=== PATIENT | female | born 1990 | race Caucasian/White ===

== ENCOUNTER 2020-11-22 23:38 | Emergency (ER) | payer OTHER, SELFPAY ==
[2020-11-22] MEDS ORDERED: methylPREDNISolone Sod Succ/PF 125 MG/2 ML VIAL ONE (23:53)
== END 2020-11-23 00:05 | disposition home or self-care (01) ==
LOC: MADERS 23:38
DX: M54.41 Lumbago with sciatica, right side (principal)
CPT/HCPCS: 96372; 99283; J2930

== ENCOUNTER 2020-12-04 19:34 | Emergency (ER) | payer OTHER, SELFPAY ==
[2020-12-04] MEDS ORDERED: HYDROcodone/Acetaminophen 5/325 mg Tablet ONE (20:13)
[2020-12-04] MEDS ORDERED: Gabapentin 100 MG CAP ONE (20:14)
[2020-12-04] MEDS ORDERED: Ketorolac Tromethamine 60 MG/2 ML VIAL ONE (20:14)
[2020-12-04] MEDS ORDERED: Cyclobenzaprine 10 MG TAB ONE (20:14)
== END 2020-12-04 20:43 | disposition home or self-care (01) ==
LOC: MADERS 19:34
DX: M54.41 Lumbago with sciatica, right side (principal); F17.210 Nicotine dependence, cigarettes, uncomplicated
CPT/HCPCS: 96372; 99283; J1885

== ENCOUNTER 2021-01-26 21:14 | Emergency (ER) | payer SELFPAY ==
[2021-01-26] MEDS ORDERED: Ketorolac Tromethamine 60 MG/2 ML VIAL ONE (22:51)
[2021-01-26] MEDS ORDERED: HYDROcodone/Acetaminophen 5/325 mg Tablet ONE (22:51)
[2021-01-26] MEDS ORDERED: Cyclobenzaprine 10 MG TAB ONE (22:51)
[2021-01-26] MEDS ORDERED: Gabapentin 100 MG CAP ONE (22:51)
== END 2021-01-26 23:12 | disposition home or self-care (01) ==
LOC: MADERS 21:14
DX: M54.41 Lumbago with sciatica, right side (principal); F17.200 Nicotine dependence, unspecified, uncomplicated
CPT/HCPCS: 96372; 99283; J1885

== ENCOUNTER 2021-02-09 23:47 | Emergency (ER) | payer SELFPAY ==
[2021-02-10] MEDS ORDERED: HYDROcodone/Acetaminophen 5/325 mg Tablet ONE (00:49)
[2021-02-10] MEDS ORDERED: predniSONE 20 MG TAB ONE (00:49)
== END 2021-02-10 00:59 | disposition home or self-care (01) ==
LOC: MADERS 23:47
DX: M54.31 Sciatica, right side (principal); F17.200 Nicotine dependence, unspecified, uncomplicated
CPT/HCPCS: 99283; J7512

== ENCOUNTER 2021-12-23 07:28 | Emergency (ER) | payer MEDICAID ==
[2021-12-23] MEDS ORDERED: Fluorescein Opthalmic Strip ONE (08:10)
[2021-12-23] MEDS ORDERED: Tetracaine 0.5% PF 4 ML BOT ONE (08:10)
== END 2021-12-23 08:43 | disposition home or self-care (01) ==
LOC: MADERS 07:28
DX: H18.20 Unspecified corneal edema (principal); H20.00 Unspecified acute and subacute iridocyclitis; F17.200 Nicotine dependence, unspecified, uncomplicated
CPT/HCPCS: 99283

== ENCOUNTER 2021-12-25 19:04 | Emergency (ER) | payer MEDICAID, SELFPAY ==
[2021-12-25] MEDS ORDERED: Fluorescein Opthalmic Strip ONE (19:18)
[2021-12-25] MEDS ORDERED: Tetracaine 0.5% PF 4 ML BOT ONE (19:18)
[2021-12-25] MEDS ORDERED: Tobramycin Sulfate 0.3% Ophth Susp 5 ml Bottle ONE (19:51)
[2021-12-25] MEDS ORDERED: predniSONE 20 MG TAB ONE (20:05)
== END 2021-12-25 20:09 | disposition home or self-care (01) ==
LOC: MADERS 19:04
DX: H10.9 Unspecified conjunctivitis (principal); F17.200 Nicotine dependence, unspecified, uncomplicated; Z79.899 Other long term (current) drug therapy
CPT/HCPCS: 99283; J7512

== ENCOUNTER 2022-01-26 08:10 | Emergency (ER) | payer SELFPAY ==
[2022-01-26] MEDS ORDERED: Lactated Ringer's 1,000 ML ONE (08:45)
[2022-01-26] MEDS ORDERED: Ondansetron PF 4 MG/2 ML Vial ONE (08:45)
[2022-01-26] MEDS ORDERED: Ketorolac Tromethamine 30 MG/ML VIAL ONE (08:45)
[2022-01-26 10:01] LABS: BHCG - Serum Negative (NEGATIVE); Pregs Control Background? CLEAR/WHITE (CLR/WHITE); Pregs Control Bar Appear? YES (CONTROL BAR)
[2022-01-26 10:02] LABS: #Basophils 0.1 thou/uL (0.0-0.2); #Eosinphils 0.1 thou/uL (0.0-0.7); #Lymphocytes 1.2 thou/uL (1.20-3.40); #Monocytes 0.8 thou/uL (0.11-0.59); %Basophils 0.9 % (0.0-1.0); %Lymphocytes 12.8 % (21.0-51.0); %Monocytes 8.8 % (0.0-10.0); %Neutrophils 76.6 % (42.0-75.0); Mean Corpuscular Volume 76.6 fL (78.0-98.0); Mean Platelet Volume 7.4 fL (7.4-10.4); Platelet Count 331 thou/uL (130-400); RBC Distribution Width 14.4 % (11.5-14.5); Red Blood Cell (RBC) Count 3.93 mill/uL (4.20-5.40); White Blood Cell (WBC) Count 9.1 thou/uL (4.8-10.8)
[2022-01-26 10:04] LABS: Anisocytosis SLIGHT = 6-15 cells (100X) (0-5/hpf); Platelet Morphology Comment Appears Adequate
[2022-01-26 10:06] LABS: ALT (SGPT) 9 U/L (8-55); AST (SGOT) 14 U/L (5-34); Albumin 3.7 g/dL (3.5-5.0); Alkaline Phosphatase 78 U/L (40-110); Anion Gap 13 mmol/L (10-20); BUN (Urea Nitrogen) 8 mg/dL (7.0-18.7); Bilirubin, Total 0.5 mg/dL (0.2-1.2); Calc. Creatinine Clearance 0 mL/min (70-130); Calcium 8.9 mg/dL (7.8-10.44); Carbon Dioxide 22 mmol/L (22-29); Chloride 106 mmol/L (98-107); Estimated GFR 113; Globulin 2.4 g/dL (2.4-3.5); Glucose 94 mg/dL (70-105); Lipase 19 U/L (8-78); Potassium 3.9 mmol/L (3.5-5.1); Protein, Total 6.1 g/dL (6.0-8.3); Sodium 137 mmol/L (136-145)
[2022-01-26 10:33] LABS: Bilirubin Negative (Negative); Blood, Urine Large (Negative); Clarity Clear (Clear); Glucose, Urine (Dipstick) Negative (Negative); Ketone, Urine Negative (Negative); Leukocyte Negative (Negative); Nitrite Negative (Negative); Protein, Urine (Dipstick) Negative (Neg-Trace); Specific Gravity, Urine 1.025 (1.005-1.030); Urobilinogen 0.2 mg/dL (Less than 2)
[2022-01-26 10:40] LABS: RBC/HPF Greater than 50 HPF (0-3); WBC/HPF 0-3 HPF (0-3)
[2022-01-26 10:41] LABS: Bacteria/HPF Rare-Few HPF (None Seen)
== END 2022-01-26 10:48 | disposition home or self-care (01) ==
LOC: MADERS 08:10
DX: N20.2 Calculus of kidney with calculus of ureter (principal); D50.9 Iron deficiency anemia, unspecified
CPT/HCPCS: 36415; 80053; 81003; 81015; 83690; 84703; 85025; 87086; 94760; 96361; 96374; 96375; J1885; J2405; J7120

== ENCOUNTER 2022-01-26 22:05 | Emergency (ER) | payer SELFPAY ==
[2022-01-26] MEDS ORDERED: Ketorolac Tromethamine 30 MG/ML VIAL ONE (22:52)
[2022-01-26 23:55] LABS: Bilirubin Negative (Negative); Blood, Urine Trace (Negative); Clarity Clear (Clear); Glucose, Urine (Dipstick) Negative (Negative); Ketone, Urine 15 mg/dL (Negative); Leukocyte Negative (Negative); Nitrite Negative (Negative); Protein, Urine (Dipstick) Negative (Neg-Trace); Urobilinogen 0.2 mg/dL (Less than 2); pH, Urine 5.5 (5.0-9.0)
[2022-01-27 00:04] LABS: Specific Gravity, Urine 1.024 (1.002-1.036)
[2022-01-27 00:05] LABS: Pregnancy Test - Urine (BHCG) Negative (Negative); Pregu Control Background? CLEAR/WHITE (CLR/WHITE); Pregu Control Bar Appear? YES (CONTROL BAR); Specific Gravity 1.024 (1.002-1.036)
[2022-01-27] MEDS ORDERED: Lactated Ringer's 1,000 ML ONE (00:05)
[2022-01-27] MEDS ORDERED: Morphine 4 MG/ML VIAL ONE (00:05)
== END 2022-01-27 01:09 | disposition home or self-care (01) ==
LOC: MADERS 22:05
DX: N20.2 Calculus of kidney with calculus of ureter (principal); E86.0 Dehydration; F17.200 Nicotine dependence, unspecified, uncomplicated
CPT/HCPCS: 81025; 96361; 96374; 96375; J1885; J2270; J7120

== ENCOUNTER 2022-06-24 23:57 | Emergency (ER) | payer BC ==
[2022-06-25] MEDS ORDERED: Ketorolac Tromethamine 60 MG/2 ML VIAL ONE (00:26)
== END 2022-06-25 00:36 | disposition home or self-care (01) ==
LOC: MADERS 23:57
DX: K04.7 Periapical abscess without sinus (principal); F17.200 Nicotine dependence, unspecified, uncomplicated
CPT/HCPCS: 96372; 99282; J1885

== ENCOUNTER 2022-08-19 17:00 | Emergency (ER) | payer BC ==
[2022-08-19] MEDS ORDERED: Lactated Ringer's 2,000 ML ONE (17:40)
[2022-08-19 18:17] LABS: INR-International Normal Ratio 1.1; Prothrombin Time 14.8 sec (12.0-14.7)
[2022-08-19 18:19] LABS: PTT 29.3 sec (22.9-36.1)
[2022-08-19 18:25] LABS: ALT (SGPT) 23 U/L (8-55); AST (SGOT) 21 U/L (5-34); Albumin 4.3 g/dL (3.5-5.0); Alkaline Phosphatase 84 U/L (40-110); Anion Gap 15 mmol/L (10-20); BUN (Urea Nitrogen) 11 mg/dL (7.0-18.7); Bilirubin, Total 0.9 mg/dL (0.2-1.2); CK (CPK) 91 U/L (29-168); Calc. Creatinine Clearance 0 mL/min (70-130); Calcium 9.2 mg/dL (7.8-10.44); Carbon Dioxide 21 mmol/L (22-29); Chloride 105 mmol/L (98-107); Estimated GFR 99; Globulin 2.7 g/dL (2.4-3.5); Glucose 107 mg/dL (70-105); Lipase 15 U/L (8-78); Magnesium 1.8 mg/dL (1.6-2.6); Potassium 3.4 mmol/L (3.5-5.1); Sodium 138 mmol/L (136-145)
[2022-08-19 18:26] LABS: Band 17 % (5-11); Hemoglobin 14.2 g/dL (12.0-16.0); Lymphocytes 5 % (21-51); MDiff Complete? YES; Mean Corpuscular HGB CONC 32.5 g/dL (32.0-36.0); Mean Corpuscular Hemoglobin 29.8 pg (27.0-31.0); Mean Corpuscular Volume 91.8 fl (78.0-98.0); Mean Platelet Volume 8.3 fL (7.4-10.4); Monocytes 9 % (0-10); Neutrophil 69 % (42-75); Platelet Count 292 10x3/uL (130-400); Platelet Morphology Comment Appears Adequate; RBC Distribution Width 13.9 % (11.5-14.5); Red Blood Cell (RBC) Count 4.78 mill/uL (4.20-5.40); White Blood Cell (WBC) Count 15.9 10x3/uL (4.8-10.8)
[2022-08-19 20:17] LABS: Bilirubin Small (Negative); Blood, Urine Large (Negative); Clarity Slightly Cloudy (Clear); Glucose, Urine (Dipstick) Negative (Negative); Ketone, Urine 80 mg/dL (Negative); Leukocyte Trace (Negative); Nitrite Negative (Negative); Protein, Urine (Dipstick) 30 mg/dL (Neg-Trace); Specific Gravity, Urine 1.025 (1.005-1.030)
[2022-08-19] MEDS ORDERED: Lactated Ringer's 1,000 ML ONE (20:20)
[2022-08-19 20:27] LABS: RBC/HPF 21-50 HPF (0-3); Squamous Epithelial Greater than 50 HPF (0-3)
[2022-08-19 20:28] LABS: Bacteria/HPF 1+ HPF (None Seen); Mucous/LPF 1+ LPF (<2+)
[2022-08-19] MEDS ORDERED: Sodium Chloride 0.9% 100 ML ONE (21:22)
[2022-08-19] MEDS ORDERED: cefTRIAXone (ROCEPHIN) 2 GM VIAL ONE (21:22)
== END 2022-08-19 22:01 | disposition home or self-care (01) ==
LOC: MADERS 17:00
DX: R82.71 Bacteriuria (principal); R65.10 Systemic inflammatory response syndrome (SIRS) of non-infectious origin without acute organ dysfunction; E86.0 Dehydration; E87.6 Hypokalemia; R94.6 Abnormal results of thyroid function studies; D72.829 Elevated white blood cell count, unspecified
CPT/HCPCS: 80053; 81003; 81015; 82550; 83605; 83690; 83735; 84439; 84443; 84484; 85025; 85610; 85730; 87040; 87086; 93005; 94760; 96361; 96365; J0696; J3490; J7120

== ENCOUNTER 2022-08-25 07:59 | Emergency (ER) | payer BC ==
[2022-08-25] MEDS ORDERED: Sodium Chloride 0.9% 1,000 ML ONE ×2 (08:27→09:18)
[2022-08-25 08:47] LABS: #Basophils 0.1 thou/uL (0.0-0.2); #Eosinphils 0.3 thou/uL (0.0-0.7); #Lymphocytes 1.8 thou/uL (1.20-3.40); #Neutrophils 5.2 thou/uL (1.40-6.50); %Basophils 1.1 % (0.0-1.0); %Eosinophils 3.2 % (0.0-10.0); %Lymphocytes 21.8 % (21.0-51.0); %Monocytes 11.6 % (0.0-10.0); %Neutrophils 62.3 % (42.0-75.0); Mean Corpuscular HGB CONC 32.5 g/dL (32.0-36.0); Mean Corpuscular Hemoglobin 29.9 pg (27.0-31.0); Mean Corpuscular Volume 92.1 fl (78.0-98.0); Mean Platelet Volume 8.5 fL (7.4-10.4); Platelet Count 414 10x3/uL (130-400); RBC Distribution Width 13.2 % (11.5-14.5); Red Blood Cell (RBC) Count 4.68 mill/uL (4.20-5.40); White Blood Cell (WBC) Count 8.3 10x3/uL (4.8-10.8)
[2022-08-25 08:51] LABS: ALT (SGPT) 16 U/L (8-55); AST (SGOT) 14 U/L (5-34); Albumin 4.3 g/dL (3.5-5.0); Alkaline Phosphatase 85 U/L (40-110); Anion Gap 14 mmol/L (10-20); BUN (Urea Nitrogen) 9 mg/dL (7.0-18.7); Bilirubin, Total 0.5 mg/dL (0.2-1.2); Calc. Creatinine Clearance 0 mL/min (70-130); Calcium 9.4 mg/dL (7.8-10.44); Carbon Dioxide 24 mmol/L (22-29); Chloride 107 mmol/L (98-107); Estimated GFR 109; Globulin 2.9 g/dL (2.4-3.5); Glucose 89 mg/dL (70-105); Potassium 3.7 mmol/L (3.5-5.1); Protein, Total 7.2 g/dL (6.0-8.3); Sodium 141 mmol/L (136-145)
[2022-08-25 08:53] LABS: BHCG - Serum Negative (NEGATIVE); Pregs Control Background? CLEAR/WHITE (CLR/WHITE); Pregs Control Bar Appear? YES (CONTROL BAR)
== END 2022-08-25 10:03 | disposition home or self-care (01) ==
LOC: MADERS 07:59
DX: E86.0 Dehydration (principal); Z87.891 Personal history of nicotine dependence
CPT/HCPCS: 80053; 83605; 84703; 85025; 96360; J7050

== ENCOUNTER 2022-12-06 12:24 | Emergency (ER) | payer BC ==
[2022-12-06] MEDS ORDERED: Sodium Chloride 0.9% 1,000 ML ONE (13:04)
[2022-12-06] MEDS ORDERED: Ketorolac Tromethamine 30 MG/ML VIAL ONE (13:04)
[2022-12-06 13:33] LABS: MONO NEGATIVE CONTROL ZONE White (Negative) (White); MONO POSITIVE CONTROL Pink Line (Positive) (PINK/RED); Mononucleosis NEGATIVE (NEGATIVE)
[2022-12-06 13:38] LABS: SARS-CoV-2 NAA Rapid Test Not Detected (NotDetected)
== END 2022-12-06 14:17 | disposition home or self-care (01) ==
LOC: MADERS 12:24
DX: J06.9 Acute upper respiratory infection, unspecified (principal); Z20.822 Contact with and (suspected) exposure to COVID-19; Z87.891 Personal history of nicotine dependence
CPT/HCPCS: 86308; 87081; 87430; 87804; 96372; 99283; J1885; J7050; U0002

== ENCOUNTER 2025-04-13 02:29 | Emergency (ER) | payer BC ==
[2025-04-13] MEDS ORDERED: Azithromycin 250 MG TAB ONE (03:17)
== END 2025-04-13 03:23 | disposition home or self-care (01) ==
LOC: MADERS 02:29
DX: J06.9 Acute upper respiratory infection, unspecified (principal); R19.7 Diarrhea, unspecified; N20.0 Calculus of kidney; M54.30 Sciatica, unspecified side; Z87.891 Personal history of nicotine dependence; Z79.899 Other long term (current) drug therapy
CPT/HCPCS: 99283